=== PATIENT | female | born 1975 | race Caucasian/White ===

== ENCOUNTER 2021-04-17 18:28 | Emergency (ER) | payer OTHER, SELFPAY ==
--- NOTE | 2021-04-17 18:39 | ED.URI ---
HPI - URI/Sore Throat General Chief Complaint: Upper Respiratory Infection Stated Complaint: ear pain sinus sore throat headache Time Seen by Provider: 04/17/21 18:39 Source: patient and RN notes reviewed History of Present Illness HPI Narrative: Patient is a 45-year-old female who presents the urgent care with complaints of right ear pain that is causing a headache, sore throat and sinus congestion. Patient has been Covid vaccinated and denies of any recent exposures. Patient states that she has been taking ibuprofen and [place] for her symptoms. States that no one else in the home has been ill. Denies of any known fevers, nausea, vomiting. Denies of any shortness of breath. No other acute complaints. No acute distress noted. Patient aware of the plan of care. Some parts of this dictation were generated by voice recognition software and may contain typographical and/or grammatical inaccuracies. Related Data Home Medications Medication Instructions Recorded Confirmed atorvastatin 40 mg PO DAILY 04/17/21 04/17/21 diclofenac sodium 75 mg PO DAILY 04/17/21 04/17/21 sertraline 100 mg PO DAILY 04/17/21 04/17/21 Allergies Allergy/AdvReac Type Severity Reaction Status Date / Time No Known Allergies Allergy Verified 04/17/21 18:56 Review of Systems Review of Systems: CONSTITUTIONAL: Denies fever, chills, or sweats. EYES: Denies visual changes, redness, or discharge. ENT: Reports of sinus congestion, sore throat, right otalgia CARDIOVASCULAR: Denies chest pain, palpitations, or edema. RESPIRATORY: Reports of dry cough without dyspnea GASTROINTESTINAL: Denies abdominal pain, nausea, vomiting, or diarrhea. GENITOURINARY: Denies dysuria or hematuria. SKIN: Denies rash or itching. MUSCULOSKELETAL: Denies back pain, joint pain, or myalgia. NEUROLOGIC: Reports of headache All other systems reviewed are negative, except as documented in HPI. PMFSH Comments At the time of my signature, I reviewed and agree with the nursing past medical, surgical, social, and family history. There is no relevant family history pertinent to the patient complaint. Exam Narrative: GENERAL: This is a well-nourished, well-developed patient, in no apparent distress. HEAD: normocephalic, atraumatic. EYES: PERRL. Sclera clear/white. Vision is grossly intact. EARS: External ears normal, auditory canals clear and without drainage, mild fluid noted behind bilateral TMs without otitis. TMs normal without perforation. Hearing grossly intact. NOSE: External nose normal with no obvious nasal discharge, nares without redness, no rhinorrhea. THROAT: Mucous membranes moist, posterior pharynx clear. Moderate postnasal drainage but exudate or ulceration NECK: Neck supple, non-tender left submandibular lymphadenopathy CARDIOVASCULAR: Regular rate and rhythm without murmurs, gallops, or rubs. RESPIRATORY: Clear to auscultation. Breath sounds equal bilaterally. No wheezes, rales, or rhonchi. SKIN: warm, intact with no suspicious lesions or rash, good texture and turgor. NEURO: awake, alert, and oriented to person, place and time. There were no obvious focal neurologic abnormalities. EXTREMITIES: No clubbing, cyanosis, or edema. Course Course Level of Care: Express Care Visit Vital Signs Vital signs: Vital Signs Temperature 98.2 F 04/17/21 18:53 Pulse Rate 99 04/17/21 18:53 Respiratory Rate 18 04/17/21 18:53 Blood Pressure 155/101 H 04/17/21 18:53 Pulse Oximetry 97 04/17/21 18:53 Temperature 98.2 F 04/17/21 18:53 Pulse Rate 99 04/17/21 18:53 Respiratory Rate 18 04/17/21 18:53 Blood Pressure 155/101 H 04/17/21 18:53 Pulse Oximetry 97 04/17/21 18:53 Reviewed-patient is informed that they may have pre-hypertension or hypertension based on a blood pressure reading in the department. I recommend the patient call the primary care provider listed on their discharge instructions or a physician of their choice this week to arrange
[2021-04-17 18:53] VITALS: BP 155/101; PULSE 99; RESP 18; TEMP 36.8; O2SAT 97
[2021-04-19 14:36] LABS: SARS-CoV-2 RNA PCR Positive
== END 2021-04-17 19:32 | disposition home or self-care (01) ==
PROVIDERS: Emergency Provider Nurse Practitioner Family; PCP Family Medicine
DX: U07.1 COVID-19 (principal); E78.00 Pure hypercholesterolemia, unspecified; M19.90 Unspecified osteoarthritis, unspecified site; F41.9 Anxiety disorder, unspecified; F32.A Depression, unspecified
CPT/HCPCS: 87081; 87804; 87880; 99213; C9803; G0463; U0003; U0005

== ENCOUNTER 2022-04-24 17:36 | Emergency (ER) | payer OTHER, SELFPAY ==
--- NOTE | ~2022-04-24 | XR_ITS ---
EXAM: XR toe 5th RT min 2V DATE: 04/24/2022 18:07 HISTORY: PLANTAR LACERATION AT PIP JOINT . COMPARISON: None available. FINDINGS: Normal mineralization. Tiny cortical irregularity with adjacent small bone fragment seen b est in the lateral views in the distal and plantar aspect of the right fifth proximal phalange, deep to a soft tissue defect. No lytic or blastic lesion. Joint spaces and physes are maintained. No erosi on or periosteal change. Soft tissues within normal limits. IMPRESSION: Small cortical irregularity and adjacent bone fragment at the distal and plantar aspect o f the right fifth proximal phalange. Reviewed, dictated and finalized at location K. [facility]ERSON IMPRESSION: Small cortical irregularity and adjacent bone fragment at the dista l and plantar aspect of the right fifth proximal phalange.
--- NOTE | 2022-04-24 17:38 | ED.WOUNDLAC ---
HPI - Wound/Laceration General Chief Complaint: Wound/Laceration Stated Complaint: Laceration to Foot/Toe Time Seen by Provider: 04/24/22 17:45 Source: patient Mode of arrival: ambulatory Limitations: no limitations History of Present Illness HPI narrative: Jocelyne is a 46-year-old female patient presenting to the clinic today with complaints of a laceration to her right 5th toe. She reports that she was doing laundry this morning and caught her right 5th toe on the side of the wall and she deviated laterally. She noticed that she had a cut underneath her right 5th toe. Tetanus shot is up-to-date per patient Related Data Home Medications Medication Instructions Recorded Confirmed atorvastatin 40 mg tablet 40 mg PO DAILY 04/17/21 04/17/21 diclofenac sodium 75 mg 75 mg PO DAILY 04/17/21 04/17/21 tablet,delayed release sertraline 100 mg tablet 100 mg PO DAILY 04/17/21 04/17/21 Allergies Allergy/AdvReac Type Severity Reaction Status Date / Time No Known Allergies Allergy Verified 04/17/21 18:56 Review of Systems Review of Systems: Pertinent positives per HPI. Patient denies any fever, chills, rash, headache, visual changes, dizziness, cough, runny nose, sore throat, shortness of breath, chest pain, palpitations, nausea, vomiting, diarrhea, constipation, abdominal pain, or any urinary issues. PMFSH Comments At the time of my signature, I reviewed and agree with the nursing past medical, surgical, social, and family history. There is no relevant family history pertinent to the patient complaint. Exam Narrative: General: Well-developed, well nourished, in no apparent distress Head: Normocephalic, atraumatic. Cardio: Regular rate and rhythm, s1 and s2 normal, no murmur appreciated. Resp: Clear to auscultation bilaterally, no rhonchi, rales, wheezing or rubs. Musculoskeletal: No deformity, 1 cm laceration to the webbing of the plantar aspect of the right 5th toe, mild tender to palpation over the proximal and distal toe, is able to flex and extend toe against resistance,grossly normal range of motion, muscle strength strong and equal, peripheral pulse strong, no edema, no cyanosis, normal gait and station Course Course Emergency Course: Portions of this record may have been created with voice recognition software. Level of Care: Express Care Visit Vital Signs Vital signs: Vital Signs Temperature 36.8 C 04/24/22 17:46 Pulse Rate 91 04/24/22 17:46 Respiratory Rate 16 04/24/22 17:46 Blood Pressure 134/87 04/24/22 17:46 Pulse Oximetry 96 04/24/22 17:46 Oxygen Delivery Room Air 04/24/22 17:46 Temperature 36.8 C 04/24/22 17:46 Pulse Rate 91 04/24/22 17:46 Respiratory Rate 16 04/24/22 17:46 Blood Pressure 134/87 04/24/22 17:46 Pulse Oximetry 96 04/24/22 17:46 Oxygen Delivery Room Air 04/24/22 17:46 Vital signs reviewed Procedures Laceration Laceration 1: Date: 04/24/22 Site: lower extremity ( right 5th toe) Side (If applicable): right Size (cm): 1 Description: linear Depth: simple, single layer Local Anesthetic: lidocaine 1% Amount of anesthesia used (mL): 3 Pre-repair: wound explored and irrigated ====== Skin Level ====== Skin layer closed with: nylon Size (cm): 5-0 Number of sutures: 3 Technique: simple, interrupted ====== Subcutaneous Layer ====== ====== Muscle Layer ====== ====== Tendon Layer ====== Dressing: Verbal consent obtained for laceration repair. Risk and benefits explained and patient voiced understanding. Area was cleansed with Primaderm and a 25 gauge needle was then used to instill (3) ml of 1% lidocaine without epi into the wound edges. Area was prepped and draped using sterile technique. A 5-0 suture on a p needle was used to place (3) interrupted sutures bringing the wound edges together- well approximated. Patient tolerated p
[2022-04-24 17:46] VITALS: BP 134/87; PULSE 91; RESP 16; TEMP 36.8; O2SAT 96
== END 2022-04-24 19:07 | disposition home or self-care (01) ==
PROVIDERS: Emergency Provider Nurse Practitioner Family; PCP Family Medicine
DX: S92.501A Displaced unspecified fracture of right lesser toe(s), initial encounter for closed fracture (principal); W22.09XA Striking against other stationary object, initial encounter; S91.114A Laceration without foreign body of right lesser toe(s) without damage to nail, initial encounter
CPT/HCPCS: 12001; 73660; 99214; G0463

== ENCOUNTER 2024-12-28 08:01 | Emergency (ER) | payer OTHER, SELFPAY ==
[2024-12-28 08:08] VITALS: BP 149/104; PULSE 97; RESP 20; TEMP 36.3; O2SAT 100
--- NOTE | 2024-12-28 08:09 | ED_ITS ---
HPI - URI/Sore Throat General Chief Complaint: Upper Respiratory Infection Stated Complaint: cold symptoms Time Seen by Provider: 12/28/24 08:15 Source: patient, RN notes reviewed and old records reviewed Mode of arrival: ambulatory Limitations: no limitations History of Present Illness HPI Narrative: 49-year-old female who presents to [facility] Care complaints of 1 week duration of sinus pressure,headaches, dry cough, low grade fevers for one week duration. Patient reports no shortness of breath or any chest pain. Patient reports that she has been taking Tylenol and also Mucinex sinus OTC medications. MD elicited complaint: cough Pertinent past history: sinusitis and seasonal allergies Onset (ago): week(s) (1) Consistency: constant Pain scale (0-10): 6 Description of mucous: clear Able to tolerate fluids by mouth: Yes Treatments prior to arrival: acetaminophen and other (Mucinex sinus) Related Data Home Medications ?Medication ?Instructions ?Recorded ?Confirmed ?Last Taken ?Type atorvastatin 40 mg tablet 40 mg PO DAILY 04/17/2108/03 Unknown History diclofenac sodium 75 mg 75 mg PO DAILY 04/17/2108/03 Unknown History tablet,delayed release cariprazine 1.5 mg capsule mg 12/28/24 Unknown Histor y (Vraylar) desvenlafaxine succinate 100 mg mg PO 12/28/24 Unknow n History tablet,extended release 24 hr dextroamphetamine-amphetamine ER PO 12/28/24 Unknown History 30 mg 24hr capsule,extend release topiramate 25 mg tablet mg 12/28/24 Unknown History Allergies Allergy/AdvReac Type Severity Reaction Status Date / Time No Known Allergies Allergy Verified 12/28/24 08:18 Review of Systems Review of Systems: CONSTITUTIONAL: Reports malaise, chills, sweats, low grade fevers. EYES: Denies visual changes, redness, or discharge. ENT: Reports rhinorrhea, congestion, sinus pain, no otalgia and no sore throat. CARDIOVASCULAR: Denies chest pain, palpitations, or edema. RESPIRATORY: Reports cough.? Denies dyspnea. GASTROINTESTINAL: Denies abdominal pain, nausea, vomiting, diarrhea SKIN: Denies rash or itching. MUSCULOSKELETAL: Denies myalgia. NEUROLOGIC: Reports headache. All systems reviewed & are unremarkable except as noted in HPI and below PMFSH Past Medical History Medical History Elevated cholesterol Adult ADHD Hypertension Surgical History Surgical History History of hysterectomy Hx of tonsillectomy H/O section x2 Social History Social History Smoking status: Former smoker Tobacco type: cigarettes Additional smoking assessment comments: quit 2003 Alcohol intake: current Alcohol use details: rare social Substance use type: does not use Living arrangements: with family Additional occupation/education comments: works at [employer] Gender identity (if verbalized by the patient): Female Comments At time of signature, agree with nursing past medical, surgical, social and family history. There is no relevant family history pertinent to the presenting complaint Exam Narrative: GENERAL: Well-appearing, well-nourished, and in no acute distress. HEAD: Normocephalic EYES: PERRLA, conjunctivae clear ENT: Nares clear, turbinates edematous and erythematous, clear discharge, facial sinus pressure and headache pain. Mucous membranes moist. TM pearly nicholas with dull light reflex bilaterally; no tragal tenderness. Oropharynx erythematous without lesions. Tonsils not present and without exudate, no drooling, no hoarseness, no trismus, uvula midline. NECK: Supple. No lymphadenopathy CHEST: Clear to auscultation, breath sounds equal. No wheezing, rhonchi, rales, or stridor. No respiratory distress, speaks in full sentences.cough noted SAO2 100% on room air HEART: Regular rate and rhythm. No murmur heard. SKIN: Warm, dry, no rash. NEURO: Alert and oriented x3. PSYCH: Normal mood and affect Course Course Emergency Course: Patient is aware of diagnosis, understands and agrees to treatment plan.? Anticipatory guidance given.? Patient agrees to follow-up as directed and is aware of reasons to seek care at the emergency department. Portions of this record may have been created with voice recognition software Level of Care: Express Care Visit Vital Signs Vital signs: Vital Signs Temperature 36.3 C L 12/28/24 08:08 Pulse Rate 97 12/28/24 08:08 Respiratory Rate 20 12/28/24 08:08 Blood Pressure 149/104 H 12/28/24 08:08 Pulse Oximetry 100 12/28/24 08:08 Oxygen Delivery Room Air 12/28/24 08:08 Temperature 36.3 C L 12/28/24 08:08 Pulse Rate 97 12/28/24 08:08 Respiratory Rate 20 12/28/24 08:08 Blood Pressure 161/115 H 12/28/24 08:35 Pulse Oximetry 100 12/28/24 08:08 Oxygen Delivery Room Air 12/28/24 08:08 Reviewed MDM - URI/Sore Throat MDM Narrative Medical decision making narrative: Differential diagnosis considered: Bui virus, strep pharyngitis, allergic rhinitis, upper respiratory tract infection, sinusitis, rhinosinusitis, nasopharyngitis. viral pharyngitis, otitis media, otitis externa, pneumonia, bronchitis, viral cough syndrome, viral syndrome, and influenza.? Exam findings show no acute concerns or changes; patient is non-toxic appearing and is in no distress.? Patient is appropriate for outpatient treatment and follow-up. Differential Diagnosis Differential diagnosis: Likely upper respiratory infection, sinusitis, viral infection and other (bacterial sinusiitis) Medical Records Attestation: I reviewed the patient's medical records. Lab Data Attestation: I reviewed the patient's lab results. Critical Care Time Critical Care Time Critical Care Time: No Discharge Plan Discharge Clinical Impression: Bacterial sinusitis Patient Disposition: Home Condition: Stable Instructions: Antibiotic Form, Sinusitis (ED) Additional Instructions: Increase fluids especially juices and water [id number] cough and cold medicine of your choice for your symptoms Zyrtec Claritin or Kristal daily include Coricidin brand decongestant Tylenol or ibuprofen for any fever pain heat to the face 20-30 minutes 4-6 times a day for pain Salt water gargles, throat lozenges or throat sprays as desired Antibiotic as directed--finished the medication If your symptoms persist, change or worsen significantly before you can contact your personal physician then please, without delay, go to the emergency department for further evaluation. Follow-up with PCP in 7-10 days or sooner if needed Follow up with PCP soon in regards to your blood pressure which is elevated above threshold for referral. Blood pressure above 120/80 may indicate pre- hypertension.149/104, rechecked manually 161/115 Patient Language: Vietnamese Prescriptions: New amoxicillin 875 mg tablet 875 mg PO Q12H Qty: 20 0RF Rx Instructions: take all of prescription No Action diclofenac sodium 75 mg tablet,delayed release (DR/EC) 75 mg PO DAILY atorvastatin 40 mg tablet 40 mg PO DAILY topiramate 25 mg tablet dextroamphetamine-amphetamine 30 mg capsule,extended release 24hr PO desvenlafaxine succinate 100 mg tablet extended release 24 hr PO Vraylar 1.5 mg capsule Follow-up/Referrals: Derrick,DESHAWN Hayes [Primary Care Provider, Unknown] Time of Disposition: 08:32 Quality [place] Coma Scale Eyes: Open Verbal: Oriented and Alert Motor: Follows Commands Alicia Coma Total Score: 15
[2024-12-28 08:35] VITALS: BP 161/115
--- OUTSIDE RECORDS SUMMARY | 2024-12-28 08:40 | XMS_ITS | Encounter Summary ---
Author Organization [facility] Healthcare Address [address] [place] [address] Care Team Providers Care Whipper Name Role Phone Thong Ojeda MD Unavailable [phone] Traci Meza NP Primary Care Provider Encounter Details Date Type Department Care Team (Latest Contact Info) Description 11/07/2024 Results Follow-Up [facility] Medical [facility] Primary Care at [address] [id number] Traci Meza, [employer] [address] [place] [address] [address] [place] [address] Follicle stimulating hormone, Comprehensive metabolic panel, Thyroid Function [place], Additional followed-up results: 5 Social History Tobacco Use Types Packs/Day Years Used Date Smoking Tobacco: Former Cigarettes 0.3 10.3 0 04/14/1993 - 08/19/2003 Smokeless Tobacco: Never Alcohol Use Standard Drinks/Week Comments Not Currently 0 (1 standard drink = 0.6 oz pur e alcohol) AUDIT-C Answer Date Recorded Q1: How often do you have a drink containing alc ohol? Monthly or less 03/03/2023 Q2: How many drinks containi ng alcohol do you have on a typical day when you are drinking? 1 or 2 03/03/2023 Q3: How often do you have si x or more drinks on one occasion? Never 03/03/2023 PHQ-2 Answer Date Recorded PHQ-2 Total Score (If total score is 3 or more points, staff should administer the PHQ-9) 2 11/04/2024 Comments No Sex and Gender Information Value Date Recorded Sex Assigned at Not on file Legal Sex Female 9:45 AM CDT Gender Identity Female 08/10/2023 6:10 PM CDT Sexual Orientation Straight 08/10/2023 6: 10 PM CDT documented as of this encounter Plan of Treatment Not on file documented as of this encounter Visit Diagnoses Not on filedocumented in this encounter Care Teams Whipper Relationship Specialty Start Date End Date Traci Meza NP [address] [facility] [address] [place] [address] PCP - General Family Medicine 09/23/24 Thong Ojeda MD Surgeon Orthopedic Surgery 11/07/21 documented as of this encounter
--- OUTSIDE RECORDS SUMMARY | 2024-12-28 08:40 | XMS_ITS | Clinical Summary ---
Author Organization [facility] Address [address] [place] [address] Care Team Providers Care [employer] Producer Name Role Phone Thong Ojeda MD Unavailable [phone] Traci Meza NP Primary Care Provider [phone] Allergies Active Allergy Reactions Criticality Noted Date Comments Gluten Diarrhea,Nausea & Vo miting,Stomach upset Low 09/10/2018 Medications SUMAtriptan (IMITREX) 100 mg tabletIndications:Migra ine Take 1 tablet (100 mg total) by mouth once as needed for migraine No more than 2 tablets (200 mg) in 24 hours 9 tablet 023 Active pnnqywxadk-wevnudv-zhxo eine-codeine (FIORINAL WITH CODEINE) per capsuleIndications:Tens ion-Type Headache Take 1 capsule by mouth every 4 (four) hours as needed for pain 30 capsule 023 Active omeprazole (PriLOSEC) 40 mg capsule 024 Active LORazepam (ATIVAN) 0.5 mg tablet Take 1 tablet (0.5 mg total) by mouth daily as needed for anxiety 20 tablet [address] (VOLTAREN) 75 mg EC tabletIndications:Arthr algia of multiple sites, bilateral Take 1 tablet (75 mg total) by mouth 2 (two) times a day 180 tablet 3 024 2024 Active desvenlafaxine ER (PRISTIQ) 100 mg 24 hr tablet Take 1 tablet (100 mg total) by mouth daily 90 tablet 1 025 Active topiramate (TOPAMAX) 25 mg tablet Take 1 tablet (25 mg total) by mouth daily 90 tablet 3 025 Active cariprazine (Vraylar) 1.5 mg capsule capsule Take 1 capsule (1.5 mg total) by mouth daily 90 capsule 1 025 Active atorvastatin (LIPITOR) 40 mg tabletIndications:Pure hypercholesterolemia Take 1 tablet (40 mg total) by mouth nightly 90 tablet 3 025 Active dextroamphetamine-amphe tamine (ADDERALL) 5 mg tablet Take 1 tablet (5 mg total) by mouth daily 30 tablet 025 Active dextroamphetamine-amphe tamine XR (ADDERALL XR) 30 mg 24 hr capsule Take 1 capsule (30 mg total) by mouth every morning 30 capsule 025 Active dextroamphetamine-amphe tamine (ADDERALL) 5 mg tablet Take 1 tablet (5 mg total) by mouth daily 30 tablet 025 2024 Discontinued dextroamphetamine-amphe tamine XR (ADDERALL XR) 30 mg 24 hr capsule Take 1 capsule (30 mg total) by mouth every morning 30 capsule 025 2024 Discontinued Active Problems Problem Noted Date Diagnosed Date Depression 05/31/2024 Overview (05/31/2024): On Zoloft 50 mg PO daily-doing well. Attention deficit hyperactiv ity disorder (ADHD), predominantly inattentive type 10/06/2023 Assessment & Plan (11/04/2024 2:17 PM CDT): Stable on current medication. Continue adderall xr as ordered. May follow up in 6 months Assessment & Plan (05/31/2024 9:45 AM GUIDE RAIL CLEANER): Concentration is good but starts to wear off in afternoon. Add on 5mg XR prn in the afternoon. Continue Adderall XR to 30 mg once daily. May follow-up in 6 months Assessment & Plan (01/04/2024 6:05 PM CDT): Improved. Will increase Adderall XR to 30 mg once daily. May follow-up in 6 months Assessment & Plan (10/06/2023 10:38 AM CDT): Patient mentioned during office visit that she had had ADHD as a child and had been treated. Diagnosed as a child. Was on stimulants as a child and in college. Positive symptoms in childhood, diagnosed. Will start with adderall xr 20mg. Discussed risks/benefits of medication and the fact that this is a controlled substance and should be kept in a safe place and can only be written for 30 day supplies. Will have her return in 3 month for recheck on medication. Pt voiced understanding of plan of care and f/u. Other viral warts 03/03/2023 Assessment & Plan (10/06/2023 9:56 AM CDT): Will refer to dermatology for wart removal Assessment & Plan (07/11/2023 10:04 AM CDT): Cryotherapy, skin lesion Date/Time: 07/11/2023 10:03 AM Performed by: Traci Meza NP Authorized by: Traci Meza NP Consent: Verbal consent obtained. Risks and benefits: risks, benefits and alternatives were discussed Consent given by: patient Patient understanding: patient states understanding of the procedure being performed Patient consent: the patient's understanding of the procedure matches consent given Patient identity confirmed: verbally with patient Local anesthesia used: no Anesthesia: Local anesthesia used: no Sedation: Patient sedated: no Patient tolerance: patient tolerated the procedure well with no immediate complications Comments: Options discussed with patient including OTC remedies, watchful waiting and in office treatment. The risk and benefits of freezing in the office was discussed; patient would like to proceed. lesion was frozen three times with liquid nitrogen with good freeze/thaw cycles. Pt tolerated the procedure well. Pt to keep areas clean and dry. Pt advised to anticipate redness and tenderness. Follow up in 1 week or as desired. Assessment & Plan (03/03/2023 12:27 PM GUIDE RAIL CLEANER): Cryotherapy, skin lesion Date/Time: 03/03/2023 12:25 PM Performed by: Traci Meza NP Authorized by: Traci Meza NP Consent: Verbal consent obtained. Risks and benefits: risks, benefits and alternatives were discussed Consent given by: patient Patient understanding: patient states understanding of the procedure being performed Patient consent: the patient's understanding of the procedure matches consent given Procedure consent: procedure consent matches procedure scheduled Patient identity confirmed: verbally with patient Local anesthesia used: no Anesthesia: Local anesthesia used: no Sedation: Patient sedated: no Patient tolerance: patient tolerated the procedure well with no immediate complications Comments: Options discussed with patient including OTC remedies, watchful waiting and in office treatment. The risk and benefits of freezing in the office was discussed; patient would like to proceed. 3 lesions was frozen three times with liquid nitrogen with good freeze/thaw cycles. Pt tolerated the procedure well. Pt to keep areas clean and dry. Pt advised to anticipate redness and tenderness. Follow up in 1 week or as desired. Vitamin D deficiency 02/02/2023 Assessment & Plan (10/06/2023 10:43 AM CDT): Recheck vitamin-D level today. Currently on vitamin-D 48565 units twice weekly Assessment & Plan (02/02/2023 5:56 PM CDT): Reviewed lab results. Vitamin-D still low. Will have her take 59637 units twice weekly and a regular bssa-wgc-ioclaby vitamin-D on the day she is not taking the 56840 units. Recheck in 3 months Annual physical exam 12/26/2022 Assessment & Plan (01/04/2024 6:06 PM CDT): -Recommended: Healthy diet. Avoiding junk food/fast food. -30 minutes of exercise most days of the week. Increase to 45 minutes for weight loss. Immunizations: Up to date Recommend covid booster as updated per CDC guidelines and influenza vaccine update this /January. increase physical activity, follow low fat diet, call if any problems Follow-up in 1 year. Assessment & Plan (12/26/2022 9:23 AM CDT): -Recommended: Healthy diet. Avoiding junk food/fast food. -30 minutes of exercise most days of the week. Increase to 45 minutes for weight loss. Immunizations: Up to date Recommend covid booster as updated per CDC guidelines and influenza vaccine update this . increase physical activity, follow low fat diet, call if any problems Follow-up in 1 year. SVT (supraventricular tachycardia) 01/03/2021 Assessment & Plan (01/03/2021 11:22 AM CDT): Currently asymptomatic. Referred to cardiology per patient's request. Incidental lung nodule, greater than or equal to 8mm 01/03/2021 Assessment & Plan (01/28/2023 10:58 AM CDT): Last CT 09/2021 shows nodule 13mm and a few other small nodules. Recommended f/u in 1 year. Ordered. Assessment & Plan (01/03/2021 11:22 AM CDT): Referred to pulmonology for further evaluation and management. Primary osteoarthritis of right hip 10/03/2020 Overview (10/03/2020): Added automatically from request for surgery [id number] Assessment & Plan (10/04/2020 2:11 PM CDT): Patient cale for a right hip replacement surgery soon. Managed by orthopaedics. Arthralgia of multiple sites, bilateral 04/13/20 Assessment & Plan (04/17/2023 8:05 PM GUIDE RAIL CLEANER): Continues to have joint pain, leg cramps. Could never get a hold of rheumatology from original referral. Will refer to Dr. Cox, arthritis center Assessment & Plan (09/27/2022 10:11 PM CDT): Check IVONNE, rheumatoid factor, CBC and refer back to Rheumatology Assessment & Plan (05/23/2022 9:57 AM GUIDE RAIL CLEANER): Add Tylenol arthritis strength, cont diclofenac. Assessment & Plan (11/07/2021 12:49 PM CDT): Clinically improved, continue current prescription medications. Assessment & Plan (10/04/2020 2:12 PM CDT): Consider PT, however, will have right hip surgery soon. Patient cautioned not to take diclofenac on the same day she will take the Celebrex as prescribed by the surgeon. Assessment & Plan (04/13/2020 12:16 PM GUIDE RAIL CLEANER): Labs ordered. Referred to rheumatology for further evaluation and management. Diclofenac use as directed. Patient instructed not to use any kavy-sbq-mahptya anti-inflammatories. May continue to use acetaminophen as needed. Back pain with right-sided sciatica 06/04/2019 Heart palpitations 09/10/2018 Assessment & Plan (09/11/2018 1:24 PM CDT): ECG shows SR. Patient will call us back with a name for a animal bounty hunter near [facility] for us to refer to. She preferred someone closer to her place of employment. H/O: hysterectomy 03/12/2018 Assessment & Plan (11/04/2024 2:17 PM CDT): Check lh, fsh. Refer to TREATING PLANT SUPERVISOR Orders: Ambulatory referral to Gynecology; Future Gluten intolerance 03/12/2018 Generalized anxiety disorder 02/19/2018 Assessment & Plan (05/31/2024 8:14 AM GUIDE RAIL CLEANER): Stable on current medication. Continue lorazepam as ordered. May follow up in 6 months Assessment & Plan (01/04/2024 6:05 PM CDT): Stable on current medication. Continue lorazepam as ordered. May follow up in 6 months Assessment & Plan (10/06/2023 10:42 AM CDT): I refilled the lorazepam 0.5 mg to use p.r.n. for panic attacks. However I cautioned that I would prefer her not to be using these daily. I feel these only for p.r.n. use. We are going to start treating her for ADHD on top of her depression and I am hoping anxiety can be a little more controlled with this addition. We will have her return in 3 months for repeat Assessment & Plan (10/24/2022 2:25 PM CDT): Stable. Continue does venlafaxine ER 100 mg once daily. Uses lorazepam p.r.n.. Follow-up in 2 months for physical Assessment & Plan (07/04/2022 3:46 PM CDT): Patient is already on 200 mg of sertraline. I told her that will have to wean her down off of the Zoloft but we can start desvenlafaxine at the same time. I wrote down a uptitrating and decreasing dose of zoloft and desvenlafaxine for the next 4 weeks in her wrap-up. I asked her to call me ot send me a message if she has any problems/concerns with medication over the next few weeks and will have her f/u in 6 weeks. Pt may wait another week to start changing medication after event scheduled next weekend. Assessment & Plan (05/26/2022 1:44 PM GUIDE RAIL CLEANER): Stable. Cont. Current prescription medications, sertraline. Assessment & Plan (11/07/2021 12:50 PM CDT): Clinically improved, continue current prescription medications. Assessment & Plan (04/13/2020 12:16 PM GUIDE RAIL CLEANER): Stable. Cont. Current meds. Assessment & Plan (02/24/2019 6:50 PM GUIDE RAIL CLEANER): Clinically improved, continue current meds. Assessment & Plan (09/11/2018 1:26 PM CDT): Psychological condition is worsening. Patient states that she feels a little more anxious. Regular aerobic exercise. Medication changes per orders. Referral to psychiatry. Psychological condition will be reassessed at the next regular appointment. Patient currently on sertraline 100mg 2 tabs po qd. Encouraged counseling, will follow. Assessment & Plan (03/12/2018 7:48 PM GUIDE RAIL CLEANER): Psychological condition is improving with treatment. Continue current treatment regimen. Regular aerobic exercise. Psychological condition will be reassessed at the next regular appointment. Migraine without aura and wi thout status migrainosus, not intractable 02/19/2018 Assessment & Plan (10/06/2023 10:44 AM CDT): Migraines have been stable. Continue Topamax 25 mg at bedtime. Has rarely needed Imitrex Assessment & Plan (04/17/2023 7:31 PM GUIDE RAIL CLEANER): Continues to do well with topamax. Continue 25mg at bedtime. Assessment & Plan (03/03/2023 12:24 PM GUIDE RAIL CLEANER): Much improved with addition of Topamax at bedtime. Will continue Topamax 25 mg at bedtime. She still has Fiorinal with codeine but rarely uses. She also has sumatriptan 100 mg to use as needed as well. Assessment & Plan (10/24/2022 2:27 PM CDT): Using Fioricet with codeine about 1 tablet a week as she still having about 1 migraine a week. We are going to add Topamax with her phentermine to hopefully help with weight loss however I am actually helpful this may help with migraines as well. Assessment & Plan (07/04/2022 3:48 PM CDT): Migraines have not been frequent so we will hold off on doing a preventative. Will focus on getting her anxiety and depression more under control. She now has sumatriptan to use p.r.n. at start of migraine as Fiorinal with codeine to use as safety net adjunct for pain Assessment & Plan (09/11/2018 1:28 PM CDT): Headaches are worsening. Advised to keep a headache diary. Medication changes per orders. Increase topiramate 25 mg bid to 50mg bid. Referred to neurology for further eval/mgmt. Cobalamin deficiency 12/10/2016 Hyperlipidemia 12/10/2016 Assessment & Plan (11/04/2024 2:17 PM CDT): Lipid abnormalities are stable, reviewed previous lipid levels in [facility]. Continue statin therapy. Lipitor (atorvastatin) Order for lipid panel was given today to be obtained. Pt voiced understanding of lab drawn and continuation of current medication regimen. Orders: atorvastatin (LIPITOR) 40 mg tablet; Take 1 tablet (40 mg total) by mouth nightly Comprehensive metabolic panel; Future Lipid panel; Future Assessment & Plan (10/06/2023 10:42 AM CDT): Lipid abnormalities are stable, reviewed previous lipid levels in [facility]. Continue statin therapy. Lipitor (atorvastatin) Order for lipid panel was given today to be obtained. Pt voiced understanding of lab drawn and continuation of current medication regimen. Assessment & Plan (09/27/2022 10:13 PM CDT): Lipid abnormalities are stable, reviewed previous lipid levels in [facility]. Pharmacotherapy as ordered. Continue atorvastatin 40 Order for lipid panel was given today to be obtained. Pt voiced understanding of lab drawn and continuation of current medication regimen. Assessment & Plan (05/26/2022 1:34 PM GUIDE RAIL CLEANER): LDL near goal of < 100. Cont statin, atorvastatin. Low chol diet recommended. Assessment & Plan (11/07/2021 12:50 PM CDT): LDL at goal of less than 100, continue current prescription medications. Low-cholesterol diet recommended. Assessment & Plan (01/03/2021 11:23 AM CDT): LDL near goal of < 70. Continue current mgmt. Assessment & Plan (04/13/2020 12:15 PM GUIDE RAIL CLEANER): Low-cholesterol diet recommended. Labs ordered. Continue current medications. Assessment & Plan (02/24/2019 6:49 PM GUIDE RAIL CLEANER): Low chol diet recommended, labs ordered. Assessment & Plan (09/11/2018 1:20 PM CDT): Lipid abnormalities are unchanged. Nutritional counseling was provided. and Pharmacotherapy as ordered. Lipids will be reassessed in 6 months. Atorvastatin 40 mg qd Assessment & Plan (03/12/2018 7:46 PM GUIDE RAIL CLEANER): Lipid abnormalities are unchanged. Nutritional counseling was provided. Lipids will be reassessed in 6 months. lipitor 40 mg qd Moderate episode of recurrent major depressive d isorder 12/05/2016 Assessment & Plan (11/04/2024 2:17 PM CDT): Stable. Continue counseling. Continue desvenlafaxine ER Assessment & Plan (05/31/2024 8:13 AM GUIDE RAIL CLEANER): Stable on current medication. Continue desvenlafaxine as ordered. May follow up in 6 months Assessment & Plan (01/04/2024 6:06 PM CDT): Stable on current medication. Continue desvenlafaxine as ordered. May follow up in 6 months Assessment & Plan (10/06/2023 10:40 AM CDT): Depression has been stable on does venlafaxine ER 100 mg once daily and Vraylar 1.5 mg once daily. She mentioned during office visit that she had had ADHD as a child and he had been medicated for it throughout high school and college. Her children have told her recently that she still has ADHD. I have tried multiple antidepressants with her in the past and currently she is still having anxiety. I talked to her in length about how anxiety and depression and ADHD can be related and symptoms of anxiety and ADHD can mimic each other. Assessment & Plan (07/11/2023 9:50 AM CDT): Stable on current medication. Continue pristiq as ordered. May follow up in 6 months Assessment & Plan (04/17/2023 7:51 PM GUIDE RAIL CLEANER): Improved. Will continue vraylar. May continue lorazepam sparingly prn. Continue desvenlafaxine as well Assessment & Plan (03/03/2023 12:23 PM GUIDE RAIL CLEANER): Will decrease Pristiq to 50 mg once daily. Add Vraylar 1.5 mg once daily. Will have her follow-up in 2 months for recheck. Encouraged to reach out in the interim if needed Assessment & Plan (12/26/2022 9:22 AM CDT): Doing well on current medication. Will continue Pristiq 100 mg daily. Follow-up in 6 months Assessment & Plan (09/27/2022 10:12 PM CDT): Stable on current medication. Continue desvenlafaxine as ordered. May follow up in 6 months Assessment & Plan (08/19/2022 10:19 AM CDT): Stable on current medication. Continue does venlafaxine 100 mg as ordered. Will add lorazepam 0.5 mg p.r.n. for anxiety/irritability. May follow up in 6 months Assessment & Plan (05/26/2022 1:33 PM GUIDE RAIL CLEANER): Stable. Cont. Current prescription medications, sertraline. Assessment & Plan (11/07/2021 12:49 PM CDT): Stable. Cont. Current prescription medications. Assessment & Plan (04/13/2020 12:16 PM GUIDE RAIL CLEANER): Stable. Cont. Current meds. Assessment & Plan (02/24/2019 6:50 PM GUIDE RAIL CLEANER): Clinically improved, continue current meds. Assessment & Plan (09/11/2018 1:26 PM CDT): Psychological condition is worsening. Patient states that she feels a little more anxious. Regular aerobic exercise. Medication changes per orders. Referral to psychiatry. Psychological condition will be reassessed at the next regular appointment. Patient currently on sertraline 100mg 2 tabs po qd. Encouraged counseling, will follow. Assessment & Plan (03/12/2018 7:48 PM GUIDE RAIL CLEANER): Psychological condition is improving with treatment. Continue current treatment regimen. Regular aerobic exercise. Psychological condition will be reassessed at the next regular appointment. Morbid obesity with BMI of 40.0-44.9, adult 11/13 Assessment & Plan (05/31/2024 8:14 AM GUIDE RAIL CLEANER): BMI Follow-up includes: nutrition counseling and exercise counseling. Assessment & Plan (01/04/2024 6:05 PM CDT): BMI Follow-up includes: nutrition counseling. She is working on weight loss. Assessment & Plan (10/06/2023 10:43 AM CDT): We are going to hold off on phentermine for now since we are starting medication for ADHD. She is working on diet. She is also exercising regularly. Encouraged to eat low carb high protein Assessment & Plan (07/11/2023 9:51 AM CDT): BMI Follow-up includes: education provided. Assessment & Plan (04/17/2023 8:03 PM GUIDE RAIL CLEANER): She will call when she is back on her trip and ready to work on weight loss again, she can call and we can do phentermine and then make a f/u. Assessment & Plan (03/03/2023 12:24 PM GUIDE RAIL CLEANER): Worsening. Had some difficulty over the last month. Had taken a couple of small trips. We are going to take a break over the holidays on the phentermine and readdress in the new year. Assessment & Plan (02/02/2023 5:53 PM CDT): Improving. Will continue phentermine for another couple months. Will see her back in 2 months for weight check. Assessment & Plan (12/26/2022 9:26 AM CDT): She still has prescription of phentermine. She is going to start it this month. She wants to restart her diet. Will have her come back in 1 month for weight check Assessment & Plan (10/24/2022 2:30 PM CDT): Will continue phentermine 37.5 mg once daily. Add Topamax 25 mg once daily. Discussed diet choices encouraged activity daily. Will have her follow-up in 2 months for recheck in her normal physical Assessment & Plan (09/27/2022 10:10 PM CDT): She feels she is having some success with the phentermine. She wishes to continue it. I gave her another Month and will have her come back for weight check Assessment & Plan (08/19/2022 10:19 AM CDT): I discussed the risks and benefits of starting phentermine for weight loss. I discussed the short-term use of 3-4 months of phentermine with patient. I discussed this is an aide to use in conjunction with diet changes and exercise. I discussed possible side effects. I will have patient follow-up in 1 month for recheck on blood pressure and weight patient was agreeable and voiced understanding of plan of care and follow-up Assessment & Plan (07/04/2022 3:49 PM CDT): BMI Follow-up includes: exercise counseling. Assessment & Plan (05/26/2022 1:29 PM GUIDE RAIL CLEANER): Weight reduction, daily exercise and dietary modifications recommended., as obesity can complicate their hypercholesterolemia Assessment & Plan (11/07/2021 12:49 PM CDT): Weight reduction, daily exercise and dietary modifications recommended. Referred to chip program. Assessment & Plan (04/19/2021 1:18 PM GUIDE RAIL CLEANER): Weight reduction, daily exercise and dietary modifications recommended, when able to tolerate. Assessment & Plan (01/03/2021 11:24 AM CDT): Weight reduction, daily exercise and dietary modifications recommended. Assessment & Plan (04/13/2020 12:16 PM GUIDE RAIL CLEANER): Weight reduction, daily exercise and dietary modifications recommended. Assessment & Plan (02/24/2019 6:50 PM GUIDE RAIL CLEANER): Unchanged. Encouraged patient to decrease weight, increase daily exercise, and modify diet. Assessment & Plan (09/11/2018 1:30 PM CDT): Obesity is unchanged. Discussed the patient's BMI. The BMI is above average; BMI management plan is completed. General weight loss/lifestyle modification strategies discussed (elicit support from others; identify saboteurs; non-food rewards, etc). Assessment & Plan (03/12/2018 7:49 PM GUIDE RAIL CLEANER): Obesity is unchanged. Discussed the patient's BMI. The BMI is above average; BMI management plan is completed. General weight loss/lifestyle modification strategies discussed (elicit support from others; identify saboteurs; non-food rewards, etc). Hypothyroidism 12/05/2016 Overview (12/24/2022): lab -ok without med Assessment & Plan (11/04/2024 2:17 PM CDT): Has been normal without medication. Monitoring. recheck Orders: Thyroid Function Dundy; Future Assessment & Plan (10/06/2023 10:43 AM CDT): History of hypothyroidism. Not currently on medication. TSH has been euthyroid. Orders for repeat lab History of gestational diabetes 09/22/2012 Assessment & Plan (09/27/2022 10:14 PM CDT): Check hga1c Resolved Problems Problem Noted Date Diagnosed Date Resolved Date Bruising 01/06/2023 03/03/2023 Assessment & Plan (01/06/2023 12:31 PM CDT): Will order cbc, cmp, iron level, ferritin. Otalgia, right 04/19/2021 11/07/2021 Assessment & Plan (04/19/2021 1:18 PM GUIDE RAIL CLEANER): Possible ROM, trial of oral antibiotics. Upper respiratory tract infection 04/19/2021 11/07/2021 Assessment & Plan (04/19/2021 1:17 PM GUIDE RAIL CLEANER): Symptomatic treatment recommended, increase fluids, add Vitamin C 500 mg qid while ill. Gross hematuria 09/10/2018 11/07/2021 Assessment & Plan (09/11/2018 1:21 PM CDT): Labs ordered, will follow. Elevated blood-pressure read ing without diagnosis of hypertension 03/13/2017 03/12/2018 Encounters Date Type Department Care Team Description 11/07/2024 Results Follow-Up [facility] at [address] [address] Traci Meza NP Follicle stimulating hormone, Comprehensive metabolic panel, Thyroid Function Dundy, Additional followed-up results: 5 11/04/2024 2:03 PM CDT - 11/04/2024 11:59 PM CDT Hospital Encounter [address] [address] Perimenopause; Pure hypercholesterolemia; Acquired hypothyroidism; Screening for deficiency anemia Discharge Disposition: Discharge to home or self care 11/04/2024 2:00 PM CDT Lab [facility] Out[facility] Lab at [address] [phone] 11/04/2024 1:30 PM CDT Office Visit [facility] at [address] [phone] Traci Meza NP Perimenopause (Primary Dx); Pure hypercholesterolemia; H/O: hysterectomy; Acquired hypothyroidism; Attention deficit hyperactivity disorder (ADHD), predominantly inattentive type; Moderate episode of recurrent major depressive disorder (HCC); Lipid screening; Screening for deficiency anemia from Last 3 Months Immunizations Immunization Administration Dates Next Due Influenza, Quadrivalent, Spl it, Preservative Free, Intramuscular 01/01/2021,02/18/2020,01/16/2012 Influenza, Unspecified 04/14/2024(Deferr ed: Patient Refused),04/14/2023(Deferred: Patient Refused),04/14/2023(Deferred: Patient Refused),04/14/2022(Deferred: Patient Refused),02/10/2019 MMR 10/11/2011,11/05/1991 PPD TEST 10/18/2011,10/11/2011 Pfizer SARS-CoV-2 Monovalent Vaccination (12+ Yrs) PURPLE 03/11/2021,07/18/2020,06/25/2020 TD Preservative Free 01/13/2007,11/05/1991 Tdap 12/05/2016,05/29/2012,04/14/2006 Surgical History Surgery Date Site/Laterality Comments HYSTERECTOMY BREAST BIOPSY Right SECTION TUBAL LIGATION FLUORO GUIDED INJECTION HIP RIGHT 09/22/2020 Right TOTAL HIP ARTHROPLASTY 11/09/2020 Right JOINT REPLACEMENT 2020 Medical History Medical History Date Comments Hyperlipidemia Migraine Numbness Anxiety Arthritis Depression Family History Medical History Relation Name Comments Arthritis Father Saurabh Weaver Asthma Father Saurabh Weaver COPD Father Saurabh Weaver Cancer Father Saurabh Weaver Diabetes Father Saurabh Weaver Early Father Saurabh Weaver Heart attack Father Saurabh Weaver Heart disease Father Saruabh Weaver Hypertension Father Saurabh Weaver Early Father's Brother Simran Weaver Breast cancer Father's Sister Ana Early Maternal Grandfather Taj Weaver Alzheimer's disease Maternal Grandmother Aundrea Garrett Arthritis Mother Aldo Weaver Colon polyps Mother Aldo Weaver Depression Mother Aldo Weaver Mental illness Mother Aldo Weaver Early Paternal Grandfather Saranya Weaver Anesthesia problems Neg Hx Pancreatic cancer Neg Hx Prostate cancer Neg Hx Relation Name Status Comments Father Saurabh Weaver Alive Father's Brother Simran Weaver Father's Sister Ana Maternal Grandfather Taj Weaver Maternal Grandmother Aundrea Garrett Alive Mother Aldo Weaver Alive Paternal Grandfather Saranya Weaver Alive Sister Lila Alive Social History Tobacco Use Types Packs/Day Years Used Date Smoking Tobacco: Former Cigarettes 0.3 10.3 0 04/14/1993 - 08/19/2003 Smokeless Tobacco: Never Tobacco Cessation:Counseling Given: Not Answered Alcohol Use Standard Drinks/Week Comments Not Currently [...] Orientation Straight 08/10/2023 6: 10 PM CDT Obstetrics History Para Term AB IAB SAB Ectopic Multiple Livin g Live Births 2 2 2 2 2 Date Outcome GA Total Labor Labor/2nd/3rd Weight Sex Type Anes PTL Linette A1 A5 Name Clin 2004 Term 42w 0d 3.941 kg (8 lb 11 oz) F CS-LTr anv Epidur al N Livin g Pavithra e Delivery Location:[facility] L[facility] Comments:says was ely solomon 3 times without success and was delivered by c/s, no complications p delivery, pt states had placenta previa in that resolved, was on strict bedrest from 2nd trimester until delivery for pre-eclampsia, 2012 Term 39w 1d F C-S j incis Spinal N Livin g 9 9 GREEN ,BABY GIRL Nia banda, Henrik Scott MD Delivery Location:[facility] ([facility]) Last Filed Vital Signs Vital Sign Reading Time Taken Comments Blood Pressure 134/96 11/04/2024 1:27 PM CDT Pulse 94 11/04/2024 1:27 PM CDT Temperature 36.5 C (97.7 F) 11/04/2024 1:27 PM CDT Respiratory Rate 18 11/04/2024 1:27 PM CDT Oxygen Saturation 97% 11/04/2024 1:27 PM CDT Inhaled Oxygen Concentration - - Weight 96.6 kg (213 lb) 11/04/2024 1:27 PM CDT Height 152.4 cm (5') 11/04/2024 1:27 PM CDT Body Mass Index 41.6 11/04/2024 1:27 PM CDT Plan of Treatment Health Maintenance Due Date Last Done Comments Hepatitis B Screening 07/17/1995 Covid-19 Vaccine ( season) 2024 04/30/2023, 02/03/2022, 03/11/2021, Additional history exists Regular Well Visit/Exam 18-64 12/30/2024 12/31/2023, 12/24/2022, 11/07/2021, Additional history exists Breast Cancer Screening-Mammogram 01/22/2025 01/23/2024, 12/13/2022, 11/23/2021, Additional history exists Depression Screening 11/04/2025 11/04/2024, 12/31/2023, 10/06/2023, Additional history exists Colon Cancer Screening-DNA Stool 01/05/2026 01/05/2023 DTaP/Tdap/Td Vaccine (5 - Td or Tdap) 12/05/2026 12/05/2016, 05/29/2012, 01/13/2007, Additional history exists Hepatitis C Screening Completed 08/03/2020 Influenza Vaccine Discontinued 01/01/2021, , 02/10/2019, Additional history exists Colon Cancer Screening-Colonoscopy Discontinued 11/25/2022 Pneumococcal vaccine <65 Aged Out No longer eligible based on patient's age to complete this topic Medical Devices Implanted Type Area Applied Behavior Science Specialist Device Identifier Shelf Expiration Date Model / Serial / Lot [employer] [id number] Cup Acetabular Bi Mentum Od49mm Femoral Proximal Press Fit - [id number] Implanted:Qty: 1 on 11/09/2020 by Thong Ojeda MD at [facility] Right: Hip [employer] [id number] 03/13/2024 [id number] / / [id number] [employer] [id number] Liner Acetabular Bi Mentum Polyethylene Od49mm Id28mm Femoral Proximal - [id number] Implanted:Qty: 1 on 11/09/2020 by Thong Ojeda MD at [facility] Right: Hip [employer] [id number] 05/14/2025 [id number] / / [id number] [employer] [id number] Articul/Garett 28mm Cementless Hip +1.5mm 12/14 Taper Head Femoral Latex Free - [id number] Implanted:Qty: 1 on 11/09/2020 by Thong Ojeda MD at [facility] Right: Hip [employer] [id number] 09/11/2025 [id number] / / [id number] [employer] [id number] Actis 105mm Collar Hip 5 High Offset Stem Femoral - [id number] Implanted:Qty: 1 on 11/09/2020 by Thong Ojeda MD at [facility] Right: Hip [employer] [id number] 10/11/2030 [id number] / / [id number] Procedures Procedure Name Priority Date/Time Associated Diagnosis Comments EGFR Routine 11/04/2024 2:03 PM CDT Pure hypercholesterolemia DIFFERENTIAL AUTO Routine 11/04/2024 2:03 PM CDT Screening for deficiency anemia LIPID PANEL Routine 11/04/2024 2:03 PM CDT Pure hypercholesterolemia CBC WITH AUTO DIFFERENTIAL Routine 11/04/2024 2:03 PM CDT Screening for deficiency anemia LUTEINIZING HORMONE (LH) Routine 11/04/2024 2:03 PM CDT Perimenopause THYROID FUNCTION CASCADE Routine 11/04/2024 2:03 PM CDT Acquired hypothyroidism COMPREHENSIVE METABOLIC PANEL Routine 11/04/2024 2:03 PM CDT Pure hypercholesterolemia FOLLICLE STIMULATING HORMONE Routine 11/04/2024 2:03 PM CDT Perimenopause SCREENING MAMMOGRAM BILATERAL W PINEDA Schedule Routine, Read Routine (OP Routine) 01/23/2024 11:47 AM CDT Visit for screening mammogram STOOL DNA COLOGUARD Routine 01/05/2023 1:38 PM CDT Colon cancer screening HEPATITIS C ANTIBODY Routine 08/03/2020 10:45 AM CDT Arthralgia of multiple sites, bilateral Other fatigue Myalgia from Last 3 Months or Most Recently Relevant to Health Maintenance Results * eGFR (11/04/2024 2:03 PM CDT) eGFR 90 >=60 mL/min/1. 73 m2 Comment: Interpretive Data Reference Interval Normal >/= 90 mL/min/1.73m2 Mildly decreased* 60 - 89 mL/min/1.73m2 Mildly to moderately decreased 45 - 59 mL/min/1.73m2 Moderately to severely decreased 30 - 44 mL/min/1.73m2 Severely decreased 15 - 29 mL/min/1.73m2 Kidney Failure < 15 mL/min/1.73m2 *Relative to young adult level Estimated glomerular filtration rate is determined by the 2020 CKD-EPI equation recommended by the National Kidney Foundation (A Unifying Approach to GFR Estimation: Recommendations of the NKF-ASK Task Force on Reassessing the Inclusion of Race in Diagnosing Kidney Disease, JASN 2020). The CKD-EPI equation should not be used for patients with unstable renal function and has not been validated in children and those over 70. Current interpretive data was last reviewed 2021. Blood 11/04/2024 2:03 PM CDT 11/04/2024 10:09 PM CDT us Traci Meza NP LAB BLOOD ORDERABLES Final Re sult [facility] [id number] Department of Laboratories [place], [place] [id number] * Differential, auto (11/04/2024 2:03 PM CDT) Neutrophil abs 3.57 1.50 - 6.50 K/cumm Imm gran abs 0.02 0.00 - 0.10 K/cumm [facility] Lymphocyte abs 1.70 0.80 - 3.30 K/cumm [facility] Monocyte abs 0.37 0.20 - 0.80 K/cumm [facility] Eosinophil abs 0.10 0.00 - 0.50 K/cumm [facility] Basophil abs 0.04 0.00 - 0.10 K/cumm [facility] Neutrophil pct 61.6 % [facility] Comment: Interpretive Data Percent cell count reference ranges are not reported, since discordance with absolute values may lead to misinterpretation of CBC data. Current Interpretive Data was last revised on 2017. Imm gran pct 0.3 % [facility] Comment: Interpretive Data Percent cell count reference ranges are not reported, since discordance with absolute values may lead to misinterpretation of CBC data. Current Interpretive Data was last revised on 2017. Lymphocyte pct 29.3 % [facility] Comment: Interpretive Data Percent cell count reference ranges are not reported, since discordance with absolute values may lead to misinterpretation of CBC data. Current Interpretive Data was last revised on 2017. Monocyte pct 6.4 % [facility] Comment: Interpretive Data Percent cell count reference ranges are not reported, since discordance with absolute values may lead to misinterpretation of CBC data. Current Interpretive Data was last revised on 2017. Eosinophil pct 1.7 % [facility] Comment: Interpretive Data Percent cell count reference ranges are not reported, since discordance with absolute values may lead to misinterpretation of CBC data. Current Interpretive Data was last revised on 2017. Basophil pct 0.7 % [facility] Comment: Interpretive Data Percent cell count reference ranges are not reported, since discordance with absolute values may lead to misinterpretation of CBC data. Current Interpretive Data was last revised on 2017. Blood 11/04/2024 2:03 PM CDT 11/04/2024 10:00 PM CDT us Traci Meza NP LAB BLOOD ORDERABLES Final Re sult [facility] [id number] Department [place] [address] * Thyroid Function Dundy (11/04/2024 2:03 PM CDT) TSH 2.67 0.30 - 4.20 mcIUnit/mL Blood 11/04/2024 2:03 PM CDT 11/04/2024 10:00 PM CDT Traci Meza ENVIRONMENTAL CONSULTANT LAB BLOOD ORDERABLES Final Re sult Performing Organization Address City/[facility] Co de Phone Number [facility] CHEEMA [id number] [place] [address] * CBC with auto differential (11/04/2024 2:03 PM CDT) Pathologist [facility] WBC 5.80 3.80 - 9.90 K/cumm Hgb 13.7 11.9 - 15.5 g/dL [facility] Hct 40.6 35.6 - 45.5 % [facility] Plt 284 150 - 400 K/cumm [facility] MPV 9.1 9.1 - 12.3 fL [facility] RBC 4.42 3.90 - 5.20 M/cumm [facility] MCV 91.9 81.3 - 96.4 fL [facility] MCH 31.0 27.1 - 33.3 pg [facility] MCHC 33.7 32.3 - 35.7 g/dL [facility] RDW CV 12.9 11.1 - 14.9 % [facility] RDW SD 43.1 35.7 - 48.1 fL [facility] NRBC abs 0.00 0.00 - 0.01 K/cumm [facility] Blood 11/04/2024 2:03 PM CDT 11/04/2024 10:00 PM CDT Traci Meza ENVIRONMENTAL CONSULTANT LAB BLOOD ORDERABLES Final Re sult Performing Organization Address City/[facility] Co de Phone Number RICA CHEEMA [id number] [place] [address] * LH (11/04/2024 2:03 PM CDT) Pathologist [facility] LH 4.3 IUnits/L Comment: Interpretive Data Males: Adults: 1.7 - 8.6 IUnits/L Females: Follicular: 2.4 - 12.6 IUnits/L Ovulation: 14.0 - 95.6 IUnits/L Luteal: 1.0 - 11.4 IUnits/L Postmenopausal: 7.7 - 58.5 IUnits/L Current interpretive data was last revised on 2018. Testing performed by: [facility], [address] [place]., [address] Blood 11/04/2024 2:03 PM CDT 11/05/2024 9:57 AM CDT Traci Meza ENVIRONMENTAL CONSULTANT LAB BLOOD ORDERABLES Final Re sult Performing Organization Address [facility] Co de Phone Number [facility]ICA [phone] [place] [address] * Follicle stimulating hormone (11/04/2024 2:03 PM CDT) FSH 6.7 IUnits/L Comment: Interpretive Data Male: Adults: 1.5 - 12.4 IUnits/L Female: Follicular: 3.5 - 12.5 IUnits/L Ovulation: 4.7 - 21.5 IUnits/L Luteal: 1.7 - 7.7 IUnits/L Postmenopausal: 25.8 - 134.8 IUnits/L Current interpretive data was last revised 2015. Testing performed by: [facility], [address] [place]., [address] Blood 11/04/2024 2:03 PM CDT 11/05/2024 9:57 AM CDT Traci Meza NP LAB BLOOD ORDERABLES Final Re sult Performing Organization Address City/[facility] Co de Phone Number [facility] [phone] [place] [address] * (ABNORMAL) Lipid panel (11/04/2024 2:03 PM CDT) Cholesterol 197 30 - 199 mg/dL Comment: Interpretive Data Ages < or = 19 years Acceptable: <170 mg/dL Borderline high: 170-199 mg/dL High: >or= 200 mg/dL Ages > or = 20 years Desirable: <200 mg/dL Borderline high: 200-239 mg/dL High: >or= 240 mg/dL Literature References: 1. Expert Panel on Integrated Guidelines for Cardiovascular Health and Risk Reduction in Children and Adolescents. Pediatrics 2011;128:S213 2. NCEP Expert Panel. Circulation 2004;110:227 Current Interpretive Data was last revised on 2017. Triglycerides 152(H) <=149 mg/dL [facility] Comment: Interpretive Data Ages < or = 9 years Acceptable: <75 mg/dL Borderline high: 75-99 mg/dL High: >or= 100 mg/dL Ages 10 to 20 years Acceptable: <90 mg/dL Borderline high: 90-129 mg/dL High: >or= 130 mg/dL Ages > or = 20 years Desirable: <150 mg/dL Borderline high: 150-199 mg/dL High: 200-499 mg/dL Very high: >or= 499 mg/dL Literature References: 1. Expert Panel on Integrated Guidelines for Cardiovascular Health and Risk Reduction in Children and Adolescents. Pediatrics 2011;128:S213 2. NCEP Expert Panel. Circulation 2004;110:227 Current Interpretive Data was last revised on 2017. HDL 58 >=40 mg/dL [facility] Comment: Interpretive Data Ages < or = 19 years Acceptable: >45 mg/dL Borderline low: 40-45 mg/dL Low: <40 mg/dL Ages > or = 20 years Desirable: >or= 60 mg/dL Low: <40 mg/dL Literature References: 1. Expert Panel on Integrated Guidelines for Cardiovascular Health and Risk Reduction in Children and Adolescents. Pediatrics 2011;128:S213 2. NCEP Expert Panel. Circulation 2004;110:227 Current Interpretive Data was last revised on 2017. LDL, calculated 112 <=129 mg/dL [facility] Comment: Interpretive Data Ages < or = 19 years Acceptable: <110 mg/dL Borderline high: 110-129 mg/dL High: >or= 130 mg/dL Ages > or = 20 years Optimal: <100 mg/dL Near optimal: 100-129 mg/dL Borderline high: 130-159 mg/dL High: >160 mg/dL Calculated using the Quevedo LDL-C estimating equation. This equation was implemented on 2023. Prior to this date LDL-C was estimated using the Friedewald equation. Literature References: 1. Expert Panel on Integrated Guidelines for Cardiovascular Health and Risk Reduction in Children and Adolescents. Pediatrics 2011;128:S213 2. NCEP Expert Panel. Circulation 2004;110:227 3. Sae Contreras et al. LAURA Cardiol. 2020 August 12;5(5):540-548. doi: 10.1001/[email or web address] Current Interpretive Data was last revised on 2023. Non-HDL Cholesterol 139 mg/dL [facility] Comment: Interpretive Data Ages < or = 19 years Acceptable: <120 mg/dL Borderline high: 120-144 mg/dL High: >145 mg/dL Ages > or = 20 years When triglycerides are >200 mg/dL, Non-HDL cholesterol is a secondary target of therapy with treatment goals that are 30 mg/dL greater than the LDL cholesterol target. Literature References: 1. Expert Panel on Integrated Guidelines for Cardiovascular Health and Risk Reduction in Children and Adolescents. Pediatrics 2011;128:S213 2. NCEP Expert Panel. Circulation 2004;110:227 Current Interpretive Data was last revised on 2017. Chol/HDL ratio 3 [facility] Blood 11/04/2024 2:03 PM CDT 11/04/2024 10:00 PM CDT Traci Meza NP LAB BLOOD ORDERABLES Final Re sult [facility] [id number] Department [place] [address] * (ABNORMAL) Comprehensive metabolic panel (11/04/2024 2:03 PM CDT) Sodium 138 135 - 145 mmol/L Potassium, pl 5.2(H) 3.3 - 4.9 mmol/L [facility] Chloride 103 97 - 110 mmol/L [facility] CO2 25 22 - 32 mmol/L [facility] Anion gap 10 2 - 15 mmol/L [facility] BUN 12 6 - 25 mg/dL [facility] Creatinine 0.81 0.60 - 1.10 mg/dL [facility] Glucose 93 70 - 199 mg/dL [facility] Comment: Interpretive Data Fasting glucose >/= 126 mg/dl is diagnostic for diabetes. Fasting is defined as no caloric intake for at least 8 hours. Fasting glucose between 100 mg/dl to 125 mg/dl is diagnostic of prediabetes. In a patient with classic symptoms of hyperglycemia or hyperglycemic crisis, a random glucose >/= 200 mg/dl is diagnostic for diabetes. In the absence of unequivocal hyperglycemia, results should be confirmed by repeat testing. The classification and Diagnosis of Diabetes Diabetes Care 202; 46: S19-S40. Current interpretive data was last revised 2022. Calcium 9.6 8.5 - 10.3 mg/dL [facility] Bilirubin, total 0.4 0.1 - 1.2 mg/dL [facility] Protein, pl 7.5 6.5 - 8.5 g/dL [facility] Albumin 4.5 3.5 - 5.0 g/dL [facility] Alk phos 60 40 - 130 Units/L [facility] ALT 29 7 - 45 Units/L [facility] AST 27 10 - 45 Units/L [facility] Blood 11/04/2024 2:03 PM CDT 11/04/2024 10:00 PM CDT Traci Meza NP LAB BLOOD ORDERABLES Final Re sult [facility] [id number] Department [place] [address] * Screening Mammogram Bilateral W Pineda (01/23/2024 11:47 AM CDT) Anatomical Region Laterality Modality Breast Bilateral Mammography 01/23/2024 4:14 PM CDT Impressions 01/23/2024 4:14 PM CDT No evidence of malignancy in either breast. FINAL ASSESSMENT: BI-RADS Category 1: Negative. RECOMMENDATION: Recommend return for annual screening mammogram in 12 months. Electronically signed by: Pernell Vidales MD Narrative 01/23/2024 4:14 PM CDT EXAMINATION: BILATERAL SCREENING MAMMOGRAM COMPARISON: Multiple prior studies, most recently 12/13/2022 and dating back to 2018. TECHNIQUE: Full-field 2D and digital breast tomosynthesis (DBT) images were obtained. CAD was utilized. BREAST PARENCHYMAL COMPOSITION: The breasts are heterogenously dense, which may obscure small masses. FINDINGS: There is no suspicious mass, calcification, or distortion in either breast. There has been no significant interval change from the prior study. Traci eMza ENVIRONMENTAL CONSULTANT IMG MAMMO PROCEDURES Final Re sult * Stool DNA - Cologuard (01/05/2023 1:38 PM CDT) Stool DNA - Cologuard Negative Negative [facility] (CLIA #:[id number]) Comment: NEGATIVE TEST RESULT. A negative Cologuard result indicates a low likelihood that a colorectal cancer (CRC) or advanced adenoma (adenomatous polyps with more advanced pre-malignant features) is present. The chance that a person with a negative Cologuard test has a colorectal cancer is less than 1 in 1500 (negative predictive value >99.9%) or has an advanced adenoma is less than 5.3% (negative predictive value 94.7%). These data are based on a prospective cross-sectional study of 10,000 individuals at average risk for colorectal cancer who were screened with both Cologuard and colonoscopy. (Fabi Brennan et al, N Engl J Med 2014;370(14):1658-2650) The normal value (reference range) for this assay is negative. COLOGUARD RE-SCREENING RECOMMENDATION: Periodic colorectal cancer screening is an important part of preventive healthcare for asymptomatic individuals at average risk for colorectal cancer. Following a negative Cologuard result, the [place] Cancer Society and U.S. Multi-Society Task Force screening guidelines recommend a Cologuard re-screening interval of 3 years. References: [place] Cancer Society Guideline for Colorectal Cancer Screening: https://www.cancer.org/cancer/rirwk-tftngj-srzdji/kelupotjj-xngxqbcvz-hnnmghy/ac s-rec ommendations.html.; Marbin SANDERS, Luis BOYCE, Stefany MOROCHO, Colorectal Cancer Screening: Recommendations for Physicians and Patients from the U.S. Multi-Society Task Force on Colorectal Cancer Screening , Am J Gastroenterology 2017; 112:7817-2212. TEST DESCRIPTION: Composite algorithmic analysis of stool DNA-biomarkers with hemoglobin immunoassay. Quantitative values of individual biomarkers are not reportable and are not associated with individual biomarker result reference ranges. Cologuard is intended for colorectal cancer screening of adults of either sex, 45 years or older, who are at average-risk for colorectal cancer (CRC). Cologuard has been approved for use by the U.S. FDA. The performance of Cologuard was established in a cross sectional study of average-risk adults aged 50-84. Cologuard performance in patients ages 45 to 49 years was estimated by sub-group analysis of near-age groups. Colonoscopies performed for a positive result may find as the most clinically significant lesion: colorectal cancer [4.0%], advanced adenoma (including sessile serrated polyps greater than or equal to 1cm diameter) [20%] or non- advanced adenoma [31%]; or no colorectal neoplasia [45%]. These estimates are derived from a prospective cross-sectional screening study of 10,000 individuals at average risk for colorectal cancer who were screened with both Cologuard and colonoscopy. (Fabi Gillespie al, N Engl J Med 2014;370(14):4377-1471.) Cologuard may produce a false negative or false positive result (no colorectal cancer or precancerous polyp present at colonoscopy follow up). A negative Cologuard test result does not guarantee the absence of CRC or advanced adenoma (pre-cancer). The current Cologuard screening interval is every 3 years. ([place] Cancer Society and U.S. Multi-Society Task Force). Cologuard performance data in a 10,000 patient pivotal study using colonoscopy as the reference method can be accessed at the following location: [email or web address] [place].Sterio.me/results. Additional description of the Cologuard test process, warnings and precautions can be found at www.[email or web address]. Stool 01/05/2023 1:38 PM CDT 01/07/2023 4:27 PM CDT Traci Meza NP LAB BODY FLUIDS AND STOOLS OR DERABLES Final Result [email or web address] (CLIA #:[id number]) [place] [address] * Hepatitis C antibody (08/03/2020 10:45 AM CDT) Hep C Ab Nonreactive Nonreactive [facility] Comment: Interpretive Data Nonreactive: Antibodies to HCV not detected. Does NOT exclude the possibility of recent exposure to HCV. Equivocal: Equivocal for HCV antibodies. Supplemental molecular testing will be automatically performed to determine infection status in accordance with current CDC screening recommendations. Reactive: Positive for HCV antibodies. This may represent current or past HCV infection. Supplemental molecular testing will be automatically performed to determine current infection status in accordance with current CDC screening recommendations. Interpretive data was last revised on 2019. Blood specimen (specimen) 08/03/2020 10:45 AM CDT 08/03/2020 2:05 PM CDT Sidra Bernal MD LAB MICROBIOLOGY - GENERAL ORDERABLES Final Result [facility] [address] Department [place] [address] from Last 3 Months or Most Recently Relevant to Health Maintenance Insurance [facility] PPO [facility] PPO Advance Directives For more information, please contact: [phone] * Full Code (Latest Code Status on File) Date Activated Date Inactivated Comments 11/09/2020 3:35 PM 11/11/2020 2:55 PM * Full Code Date Activated Date Inactivated Comments 12/16/2017 11:46 AM 12/16/2017 3:16 PM Care Teams Morning News Producer Relationship Specialty Start Date End Date Traci Meza NP [address] [facility] [address] [place] [address] PCP - General Family Medicine 09/23/24 Thong Ojeda MD Surgeon Orthopedic Surgery 11/07/21
--- OUTSIDE RECORDS SUMMARY | 2024-12-28 08:40 | XMS_ITS | Clinical Summary ---
Author Organization [facility] Address [address] [place] [address] Care Team Providers Care Pizza Baker Name Role Phone Traci Meza Primary Care Provider [phone] Source Comments [facility],non-owned Affiliates and Associated Physician Practices is amultiple site organization consisting of ambulatory clinics and hospital sitesin [place], [place], [place] and [place]. This disclosure is being madepursuant to the Care Everywhere program and may not contain all informatio navailable regarding this patient. Last updated 18.[facility] Social History Tobacco Use Types Packs/Day Years Used Date Smoking Tobacco: Never Assessed Comments Unknown Sex and Gender Information Value Date Recorded Sex Assigned at Not on file Legal Sex Female 10:38 AM CDT Gender Identity Not on file Sexual Orientation Not on file Plan of Treatment Health Maintenance Due Date Last Done Comments COLON MONITORING 1977 COLONOSCOPY - COLON CA SCREENING 1977 CT COLONOGRAPHY - COLON CA SCREENING 1977 FIT - COLON CA SCREENING 1977 FLEX SIG - COLON CA SCREENING 1977 LIPID TESTING 1977 HIV SCREENING 1992 HEPATITIS C SCREENING 07/12/1995 DTAP/TDAP/TD VACCINES (1 - Tdap) 1996 HEPATITIS B VACCINE (1 of 3 - 19+ 3-dose series) 1996 PAP SMEAR 1998 DEPRESSION SCREENING 04/14/2024 COVID-19 VACCINE ( - 2024- season) 2024 03/11/2021, 07/18/2020, 06/25/2020 INFLUENZA VACCINE (#1) 2024 , 02/18/2020, 02/10/2019, Additional history exists MAMMOGRAM 12/13/2024 12/13/2022, 09/0 04/2022, 11/23/2021, Additional history exists COLOGUARD (AGES 45-75) - COLON CA SCREENING 01/05/2026 01/05/2023 Colorectal Cancer Screening 01/05/2026 ZOSTER VACCINE (1 of 2) 07/17/2027 HIB VACCINE Aged Out No longer eligi ble based on patient's age to complete this topic HPV VACCINE Aged Out No longer eligi ble based on patient's age to complete this topic MENINGOCOCCAL (Group B) VACCINE SHARED DECISION-MAKING Aged Out No longer eligible based on patient's age to complete this topic MENINGOCOCCAL GROUPS A/C/Y/W VACCINE Aged Out No longer eligible based on patient's age to complete this topic PNEUMOCOCCAL VACCINE Aged Out No long er eligible based on patient's age to complete [place] [address] [employer] Care Teams Pizza Baker Relationship Specialty Start Date End Date Traci Meza [address] [address] PCP - General 07/10/23
== END 2024-12-28 08:35 | disposition home or self-care (01) ==
PROVIDERS: Emergency Provider Registered Nurse; PCP Nurse Practitioner Family
DX: J32.9 Chronic sinusitis, unspecified (principal); I10 Essential (primary) hypertension; E78.00 Pure hypercholesterolemia, unspecified; F90.9 Attention-deficit hyperactivity disorder, unspecified type
CPT/HCPCS: 99213; G0463